=== PATIENT | female | born 1945 | race Caucasian/White ===

== ENCOUNTER 2017-03-24 13:28 | Emergency (ER) | payer MEDICARE, OTHER ==
[~2017-03-24] VITALS: Ht 162.6 cm; Wt 81.8 kg
[~2017-03-24 13:28] MED LIST: ASPI-973 PO; ATOR20TA PO; ESCI5TAB10 PO; LEVO75TA4 PO; LISI10TA PO; OLAN10TA19 PO; OXCA150T PO; PHEN300C4 PO
[2017-03-24 13:35] VITALS: BP 145/58; PULSE 79; RESP 27; O2SAT 100
[2017-03-24 13:54] LABS: BASOPHILS % (AUTO) 0.2 % (0-3); EOSINOPHILS % (AUTO) 0.1 % (0-5); MONOCYTES % (AUTO) 6.1 % (4-12); Mean Corpuscular Hemoglobin 32.6 pg (27.0-35.0); Platelet Count 196 bil/L (150-400)
[2017-03-24 13:59] VITALS: BP 116/68; PULSE 80; RESP 20; O2SAT 100
[2017-03-24 14:25] LABS: TROPONIN T < 0.010 ug/L (0.0-0.011)
[2017-03-24 14:28] LABS: Magnesium 1.5 mg/dL (1.6-2.6)
--- NOTE | 2017-03-24 14:54 | DRSVH ---
PROCEDURE: CT BRAIN WITHOUT CONTRAST ([id number]) INDICATIONS: known brain tumor/ new dizziness and weakness TECHNIQUE: Noncontrast 4.5 mm thick angled axial sections acquired from the foramen magnum to the vertex, with c oronal reformats. COMPARISON: Outside Film, MR, MR BRAIN W&WO CON, 01/21/2017, 11:19. Outside Film, CT, CT BRAIN W CON , 10/01/2016, 12:09. Outside Film, CT, CT BRAIN WO CON, 09/27/2016, 15:05. FINDINGS: Image quality: Excellent. CSF spaces: Basal cisterns are patent. No extra-axial fluid collections. There is mild cerebral vo lume loss with prominence of the ventricles and sulci. Brain: No intracranial hemorrhage or midline shift. There are small regions of subcortical edema in the left frontal and posterior parietal lobes and the right posterior parietal lobe corresponding to areas of vasogenic edema associated with the small residual mass lesions seen on recent MRI. There a re subcortical, periventricular and deep white matter hypodensities also redemonstrated consistent wi th mild to moderate chronic small vessel ischemic changes. There is intracranial internal carotid ar neha atherosclerosis. Skull and face: Calvarium and visualized facial bones appear intact, without suspicious lesions. Sinuses: Visualized sinuses and mastoids are clear. IMPRESSION: 1. Small areas of subcortical edema demonstrated corresponding to the residual mass lesions seen on the most recent MRI but which are not well-visualized on noncontrast CT. 2. No acute intracranial hemorrhage or new mass effect. 3. Mild cerebral volume loss and mild to moderate chronic white matter small vessel ischemic changes . Dictated by: Rick Smalls M.D. on 03/24/2017 at 14:43 Approved by: Rick Smalls M.D. on 03/24/2017 at 14:53
--- NOTE | 2017-03-24 14:57 | DRSVH ---
PROCEDURE: X-RAY CHEST ONE VIEW, PORTABLE ([id number]) INDICATIONS: SHORT OF BREATH TECHNIQUE: One view of the chest was acquired. COMPARISON: None. FINDINGS: Surgical changes and devices: None. Lungs and pleura: No pleural effusions or pneumothorax. Lungs are clear. Mediastinum: Mediastinal contours appear normal. Heart size is normal. Bones and chest wall: No suspicious bony lesions. Overlying soft tissues appear unremarkable. IMPRESSION: 1. No acute cardiopulmonary disease. Dictated by: Rick Smalls M.D. on 03/24/2017 at 14:55 Approved by: Rick Smalls M.D. on 03/24/2017 at 14:55
--- NOTE | 2017-03-24 15:07 | ED.REPORT ---
HPI-General Illness Date of Service Mar 24, 2017 ED Provider: Jamie Minor MD Patient is a 72 year old female with a history of ovarian cancer with brain mets who presents to the ED complaining of lightheadedness onset 1300 this afternoon. Associated symptoms include a right hand tremor. Patient also complains of dysuria. The patient denies weakness, slurred speech, vision changes, seizure, fever, chills, headache, chest pain, shortness of breath, abdominal pain, nausea, vomiting, diarrhea, constipation, hematuria, hematochezia, rash or itching. The patient reports that when she got lightheaded and laid down, the tremor stopped and she has progressively been improving. She reports that she had a similar tremor that led to a seizure when her first brain tumor was discovered about 6 months ago. Nursing Notes Stated Complaint: LIGHTHEADEDNESS/OVARIAN CANCER Chief Complaint: General Complaint Nursing Notes Reviewed: Yes Allergies: Coded Allergies: lithium (Verified Allergy, Severe, drug interaction with lisinopril caused toxicity, 03/24/17) cephalexin (Verified Allergy, Intermediate, hives, 03/24/17) dexamethasone (Verified Allergy, Intermediate, hives, 03/24/17) Sulfa (Sulfonamide Antibiotics) (Verified Allergy, Mild, rash, 03/24/17) ofloxacin (Verified Allergy, Mild, rash, 03/24/17) divalproex sodium (Verified Adverse Reaction, Mild, loss of hair, 03/24/17) Scheduled Aspirin (Aspirin) 81 Mg Tablet 81 MG PO DAILY Atorvastatin (Lipitor) 20 Mg Tablet 20 MG PO DAILY Escitalopram Oxalate (Escitalopram Oxalate) 5 Mg Tablet 5 MG PO DAILY Levothyroxine (Levothyroxine) 75 Mcg Tablet 75 MCG PO DAILY Lisinopril (Lisinopril) 10 Mg Tablet 5 MG PO BID Olanzapine (Olanzapine) 10 Mg Tablet 5 MG PO BID Scheduled PRN Oxcarbazepine (Oxcarbazepine) 150 Mg Tablet 150 MG PO DAILY PRN PRN PM Oxcarbazepine (Oxcarbazepine) 150 Mg Tablet 75 MG PO DAILY PRN PRN AM Miscellaneous Medications Phenytoin Sodium Extended (Phenytoin Sodium Extended) 300 Mg Capsule 300 MG PO General Time Seen by MD: 14:59 Chief Complaint Other (lightheaded) Hx Obtained From: Patient Arrived By: Walk-in Sudden in Onset?: Yes Onset Occurred: 1 - 4 hours ago Symptom Duration: Since onset Severity: Current: No pain currently Recent Healthcare: Recent doctor visit Similar Sx Previous: Yes Past Medical History Past Medical History 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 Physical Exam Nursing note and vitals reviewed. Constitutional: Well-developed, well-nourished. Not diaphoretic. Head: Normocephalic and atraumatic. Mouth/Throat: Oropharynx is clear and moist. No oropharyngeal exudate. Eyes: EOM are normal. Pupils are equal, round, and reactive to light. Neck: Supple, no tracheal deviation. Cardiovascular: Normal rate, regular rhythm. Equal and intact distal pulses throughout. Pulmonary/Chest: Effort normal and breath sounds normal. No respiratory distress. Abdominal: Soft. No distension. There is no tenderness, rebound, or guarding. Bowel sounds present. Musculoskeletal: Range of motion grossly intact, moving all extremities. No edema or tenderness appreciated. Neurological: AOx3. Grossly nonfocal exam. Strength and sensation intact and equal to bilateral upper and lower extremities. Normal finger to nose testing. No right hand tremor currently. Skin: Warm and dry, no rashes or pallor appreciated. Psychiatric: Appropriate mood and affect. Behavior appears normal. Vital Signs Vital Signs Date Time Temp Pulse Resp B/P Pulse Ox O2 Delivery O2 Flow Rate FiO2 03/24/17 16:08 82 16 121/65 94 Room Air 03/24/17 13:59 80 20 116/68 100 Nasal Cannula 2 03/24/17 13:35 36.5 79 27 145/58 100 Room Air Initial VS: Reviewed Interpretation & Diagnostics Interpretation & Diagnostics: BRAIN MRI: IMPRESSION: 1. Stable appearance of known metastatic disease with questionable minimal interval decrease in size. No new lesions are identified. No acute intracranial process. 2. Moderate atrophy and chronic microvascular ischemic changes Dictated by: Vannesa Ellsworth M.D. on 03/24/2017 at 18:27 Approved by: Vannesa Ellsworth M.D. on 03/24/2017 at 18:31 Lab Results Interpretation Result Diagram: 03/24/17 1345 03/24/17 1345 Test 03/24/17 13:45 03/24/17 15:29 03/24/17 15:30 White Blood Count 9.8th/mm3 (3.8-10.1) Red Blood Count 3.87mil/mm3 (3.90-5.20) Hemoglobin 12.6g/dL (12.0-15.6) Hematocrit 35.2% (35.0-46.0) Mean Corpuscular Volume 91.0fL (81-100) Mean Corpuscular Hemoglobin 32.6pg (27.0-35.0) Mean Corpuscular Hemoglobin Concent 35.8% (32.0-37.0) Red Cell Distribution Width 11.7% (12.3-15.4) Platelet Count 196bil/L (150-400) Neutrophils (%) (Auto) 73.0% (40-74) Lymphocytes (%) (Auto) 20.4% (14-46) Monocytes (%) (Auto) 6.1% (4-12) Eosinophils (%) (Auto) 0.1% (0-5) Basophils (%) (Auto) 0.2% (0-3) Prothrombin Time 10.7sec (8.1-12.5) Prothromb Time International Ratio 1.00ratio Sodium Level 132mEq/L (134-144) Potassium Level 4.1mEq/L (3.5-5.2) Chloride Level 94mEq/L (97-108) Carbon Dioxide Level 18mmol/L (18-29) Blood Urea Nitrogen 22mg/dL (8-27) Creatinine 0.89mg/dL (0.57-1.00) Estimat Glomerular Filtration Rate 89mL/min (>59) Glucose Level 101mg/dL (60-99) Calcium Level 9.7mg/dL (8.5-10.1) Magnesium Level 1.5mg/dL (1.6-2.6) Total Bilirubin 0.2mg/dL (0.0-1.2) Aspartate Amino Transf (AST/SGOT) 15U/L (0-50) Alanine Aminotransferase (ALT/SGPT) 11U/L (0-32) Alkaline Phosphatase 135U/L (25-165) Troponin T < 0.010ug/L (0.0-0.011) Total Protein 6.7g/dL (6.4-8.4) Albumin 4.3g/dL (3.4-5.0) Hold Urine Received (Received) Urine Color Yellow (YELLOW) Urine Appearance Cloudy (CLEAR,HAZY) Urine pH 6.5 (5.0-8.0) Urine Specific Hall 1.005 (1.003-1.035) Urine Protein Negativemg/dL (NEG,TRACE) Urine Glucose (UA) Negativemg/dL (NEGATIVE) Urine Ketones Negativemg/dL (NEGATIVE) Urine Occult Blood Trace (NEGATIVE) Urine Nitrite Negative (NEGATIVE) Urine Bilirubin Negative (NEGATIVE) Urine Urobilinogen Normalmg/dL (NORMAL) Urine Leukocyte Esterase Large (NEGATIVE) Urine RBC 0-2/hpf (0-2) Urine WBC 11-50/hpf (0-5) Urine Epithelial Cells Few/hpf (NONE-MOD) Urine Crystals None seen (NONE SEEN) Urine Bacteria Few/hpf (NONE-FEW) Urine Hyaline Casts None/lpf (NONE) Urine Granular Casts None seen (NONE SEEN) Urine Waxy Casts None seen (NONE SEEN) Urine Red Blood Cell Casts None seen (NONE SEEN) Urine White Blood Cell Casts None seen (NONE SEEN) Urine Mucus None seen (None Seen) Urine Trichomonas None seen (NONE SEEN) Urine Yeast None (NONE SEEN) Urinalysis Comment None Urine Culture Reflexed Indicated ECG Interpretation ECG Interpretation: left anterior fasicular block Time: 15:07 Interpreted by: ED physician Normal ECG Interpretation: Normal rate (75), Normal sinus rhythm X-Ray Chest Interpretation Chest Xray Interpretation: IMPRESSION: 1. No acute cardiopulmonary disease. Dictated by: Rick Smalls M.D. on 03/24/2017 at 14:55 Approved by: Rick Smalls M.D. on 03/24/2017 at 14:55 View: Portable, 1 view Interpretation / Wet Read by: Interpret - Radiologist CT Head Interpretation IMPRESSION: 1. Small areas of subcortical edema demonstrated corresponding to the residual mass lesions seen on the most recent MRI but which are not well-visualized on noncontrast CT. 2. No acute intracranial hemorrhage or new mass effect. 3. Mild cerebral volume loss and mild to moderate chronic white matter small vessel ischemic changes. Dictated by: Rick Smalls M.D. on 03/24/2017 at 14:43 Approved by: Rick Smalls M.D. on 03/24/2017 at 14:53 Study: Head CT no contrast Interpretation / Wet Read by: Interpret - Radiologist Re-Eval/Medical Decision Med Decision/Clinical Course In summary, 72-year-old female with a history of metastatic ovarian cancer and known intracranial mass presenting to the ED for evaluation of lightheadedness and a right hand tremor that started approximately 2 hours prior to arrival. No loss of consciousness, no tonic-clonic activity, no tongue biting to suggest seizure. No chest pain, EKG with no acute ischemic changes, troponin negative; does not seem consistent with ACS. No dyspnea to suggest a pulmonary etiology. Her symptoms are resolving here in the ED and she does not have any hand tremor anymore. Reassuring neurologic examination. Ambulating here in the ED without difficulty. Chest x-ray negative for pneumonia or other acute abnormality. Head CT demonstrates small areas of subcortical edema corresponding to the known residual mass lesions on most recent MRI, however no acute intracranial hemorrhage or new mass effect. Laboratory studies notable for a magnesium of 1.5, sodium of 132. White blood cell count 9.8. IVF and Mg given here in ED. Vital signs here grossly within normal limits. UA demonstrates findings c/w infection; given dose of fosfomycin here in the ED, though this doesn't seem to completely correspond to her symptoms aside from dysuria. I discussed the patient with her oncologist as per below; he recommends an MRI with and without contrast; if no acute findings such as mass effect or bleed, etc., and if only some mild progression, OK to d/c w/ f/u tomorrow to make an appointment. MRI shows stable appearance of known metastatic disease with questionable minimal interval decrease in size. No new lesions are identified. On reassessment, patient continues to do well and has no new complaints. Given the above, reasonable to discharge home with very careful return precautions, follow-up tomorrow. Patient agreeable to the plan as stated, no further questions. Source of Hx: Old records Time of Eval: 15:45 Re-Evaluation/Progress Note: Discussed plan for IV fluids and pending UA results. Discussed CT, X-ray and lab results. Time of Eval: 15:59 Re-Evaluation/Progress Note: Discussed plan for MRI after consult with Dr. Elam. Discussed UA results. Time of Eval: 19:14 Re-Evaluation/Progress Note: Discussed MRI results and plan for discharge. Patient understands and agrees to plan. All questions were addressed Consultation : Referral / Consult Name: Josselyn Elam MD Consulted With: Laboratory Technologist Hands Parter: Will see in office, Agrees with eval, Agrees with plan Counseled Regarding: Diagnosis, Lab results, Need for follow-up, When/why to return to ED Discharge & Departure Primary Impression: UTI (urinary tract infection) Urinary tract infection type: site unspecified Hematuria presence: without hematuria Qualified Code: N39.0 - Urinary tract infection, site not specified Additional Impressions: Tremor of right hand Lightheaded Brain metastases Disposition: Home Discharge Condition All VS Reviewed: Yes Condition: Stable Patient Instructions: Urinary Tract Infection in Women (ED) Additional Instructions: Thank you for allowing us to be a part of your care in the ED today. Your emergency department results, including brain CT, chest X-ray, EKG and labs are reassuring. I do not think that there is an emergent cause for your symptoms today that would require admission to the hospital. Your MRI showed that there are no new brain lesions. Your urinalysis did show evidence of a UTI. Please schedule a follow up appointment with your primary care physician and Dr. Elam tomorrow for a recheck. Please return to the emergency department for any new or worsening symptoms including any the tremor returns, nausea, vomiting, abdominal pain, shortness of breath, chest pain, one sided weakness/numbness, fevers, or chills, or if there's anything else of concern to you. Referrals: Baldomero Lane MD (PCP) Josselyn Elam MD Scribe Attestation Portions of this note were transcribed by Yanira Scales. I, Dr. Minor personally performed the history, physical exam and medical decision-making; I reviewed and confirmed the accuracy of the information in the transcribed note. Signed by: Jimenez Gutierrez, 03/24/17 copies to: Josselyn Elam MD,Jamie Barboza MD Mar 24, 2017 15:06 Giovanna Scales Mar 24, 2017 15:17
[2017-03-24 15:44] LABS: APPEARANCE,URINE CLOUDY (CLEAR,HAZY); COLOR,URINE YELLOW (YELLOW); OCCULT BLOOD,URINE TRACE (NEGATIVE); PH,URINE 6.5 (5.0-8.0); UROBILINOGEN,URINE NORMAL (NORMAL)
[2017-03-24] MEDS ORDERED: 0.9% Sodium Chloride 1,000 ML IV ONE (15:55)
[2017-03-24] MEDS ORDERED: Magnesium Sulf 2 Gm/50mL Water 2 GM in IV Premix 1 EACH IV ONE (15:55)
[2017-03-24 16:08] VITALS: BP 121/65; PULSE 82; RESP 16; O2SAT 94
--- NOTE | 2017-03-24 18:32 | DRSVH ---
PROCEDURE: MRI BRAIN WITH AND WITHOUT CONTRAST ([id number]) INDICATIONS: lightheaded, hand tremor w/ known mets TECHNIQUE: Noncontrast axial T1 spin echo, axial T2 fast spin echo, sagittal and axial FLAIR, coronal T2 fast sp in echo, axial gradient echo, axial diffusion and ADC through the brain. After the administration of contrast, axial and coronal T1 spin echo with fat saturation through the brain. COMPARISON: Outside Film, MR, MR BRAIN W&WO CON, 01/21/2017, 11:19. FINDINGS: Image quality: Excellent. CSF spaces: Basal cisterns are patent. No extra-axial fluid collections. Ventricles are normal in size and shape. Brain: No midline shift. No intracranial bleeds. The previously identified enhancing foci of metast atic disease are again noted with questionable minimal interval decrease in size, 1-2 mm. No new area s of abnormal enhancement are identified. There is cerebral volume loss for age. There is periventri cular white matter chronic small vessel ischemic change. The brainstem appears normal. Diffusion-we ighted images demonstrate no acute ischemic insults. No chronic ischemic insults. Normal intravascu lar flow voids are present. Skull and face: Calvarial marrow is normal in signal. Orbits appear normal. Sinuses: Sinuses and mastoids appear clear. IMPRESSION: 1. Stable appearance of known metastatic disease with questionable minimal interval decrease in size. No new lesions are identified. No acute intracranial process. 2. Moderate atrophy and chronic microvascular ischemic changes. Dictated by: Vannesa Ellsworth M.D. on 03/24/2017 at 18:27 Approved by: Vannesa Ellsworth M.D. on 03/24/2017 at 18:31
[2017-03-24 19:55] VITALS: BP 125/82; PULSE 79; RESP 16; O2SAT 95
== END 2017-03-24 19:45 | disposition home or self-care (01) ==
LOC: SED 13:28
DX: N39.0 Urinary tract infection, site not specified (principal); R30.0 Dysuria; R25.1 Tremor, unspecified; R42 Dizziness and giddiness; C79.31 Secondary malignant neoplasm of brain; C56.9 Malignant neoplasm of unspecified ovary; Z79.82 Long term (current) use of aspirin; Z88.1 Allergy status to other antibiotic agents; Z88.2 Allergy status to sulfonamides; Z88.8 Allergy status to other drugs, medicaments and biological substances
CPT/HCPCS: 36415; 70450; 70553; 71010; 80053; 81000; 82948; 83735; 84484; 85025; 85610; 87086; 87088; 87186; 93005; 96365; 96375; 99285; A9585; J2060; J7030